=== PATIENT | male | born 1945 | race Caucasian/White ===

== ENCOUNTER 2024-08-27 10:14 | Outpatient (CLI) | payer OTHER ==
[~2024-08-27] VITALS: Ht 180.3 cm; Wt 83.9 kg
[2024-08-27] MEDS: albuterol 2.5 MG/3 ML nebule NEB ONE (10:50)
[2024-08-27 10:51] VITALS: PULSE 74; RESP 15; O2SAT 97
[2024-08-27 11:02] VITALS: PULSE 79; RESP 15
== END 2024-08-27 23:59 | disposition home or self-care (01) ==
LOC: RT 10:14
PROVIDERS: ATTEND Chiropractor
DX: R94.2 Abnormal results of pulmonary function studies (principal); R06.02 Shortness of breath
CPT/HCPCS: 71046; 94060; 94760